=== PATIENT | female | born 1990 | race Caucasian/White ===

== ENCOUNTER → 2019-01-08 | Outpatient (CLI) | payer BC ==
[~2019-01-08] MED LIST: IBU800 M1 PO; PERCOCET 325 MG1 TA2 PO; PRENATAL MVI PO
--- NOTE | 2019-01-08 12:54 | NUR ---
Breann into outpatient walk in clinic for questions regarding breast pump shield size. At the presetn time, Breann is strictly pumping and feeding and chooses not to put infant to breast. Breann is pumping 6 times per day and collects 4-7 oz with each session. Breann Mi ( [birth year]) has had good weight gain, eating atleast 2.5 oz via bottle 8 x per day. Diapers are WNL. Breann verbalizes she is feeling pain with pumping and questions if her 24 mm moore are to small. While in clinic, Breann pumped with double electric pump. Nipple appeared to be pulled into the tunnel of the shield without rubbing against the sides. As she pumped longer, nipples appeared to become slightly more swollen. LC questions that a larger size shield woudl be to big and a smaller size shield would be to constrictive. It was suggested to try Pumpin Pals pump moore as they may be more comfortable. POC: If feels shield is incorrect size, try other sizes or the Pumpin Pal moore. LC offered verbal education on what the nipple with look like in a shield that is to large or to small. Questions encouraged and answered.
== END ==
LOC: OLC 11:29
DX: Z39.1 Encounter for care and examination of lactating mother (principal); Z71.89 Other specified counseling

== ENCOUNTER 2021-02-24 06:42 | Inpatient (IN) | payer BC ==
[~2021-02-24] VITALS: Ht 175.3 cm; Wt 138.2 kg
[2021-02-24] VITALS (28 sets, daily range): BP systolic 101–148; BP diastolic 49–93; PULSE 89–107; TEMP 97.6–98.9
--- NOTE | 2021-02-24 06:35 | NUR ---
PT AMBULATORY TO UNIT FOR SCHEDULED IOL. ASSISTED INTO GOWN AND ORIENTED TO LABOR ROOM. PLACED ON EFM/TOCO UPON ARRIVAL, CATEGORY 1 STRIP WITH ACCELERATIONS NOTED WITH NO CONTRACTIONS UPON ARRIVAL. PT DENIES FEELING ANY CONTRACTIONS, DENIES LEAKING OF FLUID, REPORTS POSITIVE MOVEMENT. WILL ADMIT PATIENT AND BEGIN IOL PER PROTOCOL.
[2021-02-24 07:57] LABS: BASO % 0.3 % (0.0-2.0); EOS # 0.1 K/mm3 (0.0-0.7); EOS % 1.1 % (0-4.0); GRAN # 7.8 K/mm3 (1.4-6.5); GRAN % 71.4 % (42.2-75.2); HEMATOCRIT 40.2 % (37.0-47.0); HEMOGLOBIN 13.7 g/dl (12.5-16.0); LYMPH # 2.2 K/mm3 (1.2-3.4); LYMPH % 20.3 % (20.0-51.0); MEAN CELL VOLUME 91 fl (80.0-100.0); MEAN CORPUSCULAR HEMOGLOBIN 31 pg (27.0-31.0); MEAN CORPUSCULAR HGB CONC 34 g/dl (33.0-37.0); MEAN PLATELET VOLUME 12.1 fl (7.4-10.4); MONO # 0.7 K/mm3 (0.1-0.6); MONO % 6.3 % (1.7-9.3); PLATELET COUNT 186 K/mm3 (130-400); RED BLOOD COUNT 4.44 M/mm3 (4.10-5.30); REDCELL DISTRIBUTION WIDTH-CV 12.9 % (11.5-14.5)
--- NOTE | 2021-02-24 10:37 | NUR ---
PT SITTING ON EDGE OF BED FOR EPIDURAL PLACEMENT. CAIN MERIDA PROVIDES EDUCATION REGARDING PROCEDURE. CONSENTS SIGNED. PT DENIES FURTHER QUESTIONS. DIFFICULTY TRACING EFM/TOCO DUE TO MATERNAL POSITIONING AND HABITUS. CONTRACTIONS FIRM BY PALPATION Q1.5-2MIN. 1037: SINGLE SHOT PER CAIN MERIDA 1045: PT HYPOTENSIVE, REPORTS FEELING FAINT AND EARS RINGING. EPHEDRINE ADMINSTERED VIA IV PER PROTOCOL. BP BEGINS TO RECOVER. PT REPORTS "FEELING BETTER" FOLLOWING MEDICATION ADMINISTRATION.
--- NOTE | 2021-02-24 11:35 | NUR ---
1135: PT REPORTS FEELING URGE TO PUSH AND INCREASED PERINEAL PRESSURE. SVE COMPLETE/+2. CALL TO PER VERBAL ORDERS FROM DUE TO BEING IN SURGERY AT THIS TIME. PAIN MEDICINE PHYSICIAN CALLS TO REQUEST ASSISTANCE WITH DELIVERY. 1145: AT BEDSIDE FOR DELIVERY. ROOM PREPPED AND PT BEGINS PUSHING. 1155: TO BEDSIDE FOLLOWING HER PRIOR PROCEDURE. TAKES OVER COACHING PATIENT THROUGH PUSHING SHE PREPARES FOR DELIVERY. 1203: OF VIABLE MALE PER . PLACED ON MATERNAL ABDOMEN, CORD CLAMPED X2 AND CUT BY FOB. CARE OF INFANT ASSUMED BY GURPREET BOSS. 1210: OF PLACENTA. PITOCIN BOLUS INFUSING PER PROTOCOL. BEGINS REPAPIR TO SECOND DEGREE PERINEAL LACERATION. FUNDUS FIRM AT UMBILICUS, LOCHIA MODERATE WITH CLOTS AT THIS TIME. WILL CONTINUE TO MONITOR. VITAL SIGNS STABLE. 1300: X2 FUNDAL MASSAGES WITH MODERATE LOCHIA AND CLOTS. PT REPORTS SHE KEEPS FEELING "DIZZY AND FAINT." IM METHERGINE ADMINISTERED PER VERBAL ORDERS. WILL CONTINUE TO MONITOR. BP STABLE AT THIS TIME. PT APPEARS PALE AND DIAPHORETIC. 1430: FUNDUS FIRM AT UMBILICUS, LOCHIA SCANT WITH NO FURTHER CLOTTING. PT "FEELS MUCH BETTER, JUST TIRED." VITAL SIGNS STABLE. REPORTS STILL FEELING MINIMAL NUMBNESS AND TINGLING TO BLE, BUT IT IS GREATLY IMPROVING. WILL REASSESS SHORTLY TO ATTEMPT TO MOVE PT TO ROOM. STABLE AT THIS TIME.
--- NOTE | 2021-02-24 15:15 | NUR ---
PT REPORTS FULL SENSATION TO BLE. FUNDUS FIRM AND 1FB BELOW UMBILICUS. LOCHIA SCANT WITH NO CLOTS. VITAL SIGNS STABLE. PT AMBULATORY TO RESTROOM WITH STEADY GAIT, DENIES DIZZINESS OR FEELING FAINT. YOHANA CARE PROVIDED. ASSISTED INTO NEW GOWN WITH CLEAN UNDERWEAR AND PAD. EPIDURAL REMOVED FROM BACK. PT TOLERATED ACTIVITY WELL. ASSISTED TO ROOM 215 TO CONTINUE CARES.
[2021-02-25] VITALS: BP 121/79; PULSE 97; TEMP 98
[2021-02-25 07:14] VITALS: BP 128/76; PULSE 88; TEMP 97.8
[2021-02-25 07:54] VITALS: BP 121/74; PULSE 69; TEMP 97.7
[2021-02-25] MEDS ORDERED: IBU800 M1 PO (08:48)
--- NOTE | 2021-02-25 09:12 | NUR ---
Initial visit attempt; Patient indisposed, Tutor Coordinator left card of God's blessings and congratulations for the of their son.
[2021-02-25 13:04] VITALS: BP 130/81; PULSE 88; TEMP 97.6
[2021-02-25 16:26] VITALS: BP 122/74; PULSE 82; TEMP 97.7
[2021-02-25 18:00] VITALS: BP 142/82; PULSE 66; TEMP 97.7
[2021-02-26 07:45] VITALS: BP 132/88; PULSE 97; TEMP 97.8
--- NOTE | 2021-02-26 16:30 | NUR ---
Dismissed to border status hospitality. Bands matched with babys.
== END 2021-02-26 16:30 | disposition home or self-care (01) | DRG 807 ==
LOC: LDR 06:42 → OB 15:15
PROVIDERS: ADMIT Student in an Organized Health Care Education/Training Program
PROC: 10E0XZZ Delivery of Products of Conception, External Approach (ICD-10-PCS; principal; 2021-02-24)
PROC: 0KQM0ZZ Repair Perineum Muscle, Open Approach (ICD-10-PCS; 2021-02-24)
PROC: 3E033VJ Introduction of Other Hormone into Peripheral Vein, Percutaneous Approach (ICD-10-PCS; 2021-02-24)
PROC: 10907ZC Drainage of Amniotic Fluid, Therapeutic from Products of Conception, Via Natural or Artificial Opening (ICD-10-PCS; 2021-02-24)
DX: O10.92 Unspecified pre-existing hypertension complicating childbirth (principal); Z37.0 Single live birth; O99.214 Obesity complicating childbirth; O70.1 Second degree perineal laceration during delivery; Z3A.38 38 weeks gestation of pregnancy; Z23 Encounter for immunization
CPT/HCPCS: J2210; J2590; J7120

== ENCOUNTER 2023-11-07 05:19 | Inpatient (IN) | payer OTHER ==
[~2023-11-07] VITALS: Ht 175.3 cm; Wt 140.5 kg
[2023-11-10] VITALS (26 sets, daily range): BP systolic 106–168; BP diastolic 56–90; PULSE 75–100; TEMP 97.8–98.2
--- NOTE | 2023-11-10 06:47 | NUR ---
PT AMBULATORY TO LR 6 AT THIS TIME. CHANGED INTO CLEAN GOWN AND PREPPED FOR ADMISSION
[2023-11-10] MEDS ORDERED: LR 1,000 ML IV SCH (07:00)
[2023-11-10] MEDS ORDERED: LR & Oxytocin 500 ML IV SCH (07:00)
[2023-11-10 08:10] LABS: BASO % 0.4 % (0.0-2.0); EOS # 0.1 K/mm3 (0.0-0.7); EOS % 1.2 % (0.0-4.0); GRAN # 7.3 K/mm3 (1.4-6.5); GRAN % 69.8 % (42.2-75.2); HEMOGLOBIN 11.8 g/dl (12.5-16.0); LYMPH # 2.3 K/mm3 (1.2-3.4); LYMPH % 21.4 % (20.0-51.0); MEAN CELL VOLUME 89 fl (80.0-100.0); MEAN CORPUSCULAR HEMOGLOBIN 30 pg (27-31); MEAN CORPUSCULAR HGB CONC 34 g/dl (33.0-37.0); MEAN PLATELET VOLUME 11.7 fl (7.4-10.4); MONO # 0.7 K/mm3 (0.1-0.6); MONO % 6.7 % (1.7-9.3); PLATELET COUNT 189 K/mm3 (130-400); RED BLOOD COUNT 3.93 M/mm3 (4.10-5.30)
[2023-11-10 08:12] LABS: HEMATOCRIT 34.9 % (37.0-47.0)
--- NOTE | 2023-11-10 10:16 | NUR ---
PT SITTING UPRIGHT FOR PLACEMENT OF EPIDURAL. 1016: TESTDOSE ADMINISTERED PER FUAD BERNABE. PT TOLERATED PROCEDURE VERY WELL. REPOSITIONED PATIENT TO WEDGE LEFT. CALL LIGHT AND WATER WITHIN REACH.
[2023-11-10] MEDS ORDERED: diphenhydrAMINE 50 MG/ML 1 ML VIAL IV PRN (11:00)
[2023-11-10] MEDS ORDERED: diphenhydrAMINE 25 MG CAP PO PRN (11:00)
[2023-11-10] MEDS ORDERED: ePHEDrine 50 MG/10 ML VIAL IV PRN (11:00)
[2023-11-10] MEDS ORDERED: Naloxone 0.4 MG/ML VIAL IV PRN ×2 (11:00→12:30)
[2023-11-10] MEDS ORDERED: Ondansetron 4 MG/2 ML VIAL IV PRN (11:00)
[2023-11-10] MEDS ORDERED: ROPivacaine PF 0.2% 200 ML IV ONE (12:03)
--- NOTE | 2023-11-10 12:04 | NUR ---
1110: AFTER DEEP DECEL AND TURNED OFF PIT D/T RECURRENT LATES. SVE 7/0. BOLUS OF LR, NEXT CONTRACTION DEEP LATE DECEL TO THE MID 90'S, REPOSITIONED AND CALLED PHYSICIAN, NO ANSWER. AT 1130, PHYSICIAN CALLED THIS RN, I INFORMED HIM OF RECURRENT LATES AND DEEP DECELS WELL TURNING OFF THE PITOCIN. AFTER TURNING OFF THE PITOCIN, THE DECELS STOPPED FOR THE NEXT TWO CONRTACTIONS. HUNG UP WITH PHYSICIAN AT 1135. AT 1137: THE PATIENT BEGINS A CONTRACTION THAT "FEELS DIFFERENT". HEART TONES WERE DECELING. AT 1138, THIS RN CHECKED PATIENT, SVE COMPLETE/+1. 1138: NOTIFIED PHYSICIAN PT IS COMPLETE AND WE NEED HIM FOR DELIVERY. 1149: ARRIVED, GOWNED AND GLOVED, BED PREPARED FOR DELIVERY. PT CONTRACTIONS ARE BEGINNING TO SPACE OUT. 1152: PT FEELS SOME PRESSURE AND ATTEMPTS TO PUSH, PER HE DID NOT BELIEVE SHE WAS HAVING A CONTRACTION, HOWEVER WITH THAT PUSH, HE FELT GOOD MATERNAL EFFORT MOVED INFANT WELL. 1155: PER , START PITOCIN AT 4 AGAIN TO AID IN INCREASED CONTRACTIONS. 1201: OF VIABLE MALE . INFANT STIMULATED AND PLACED ON MATERNAL ABDOMEN, CORD CLAMPEDX2 AND FOB CUT CORD. MOVED TO MATERNAL CHEST AND CARE OF ASSUMED BY GURPREET JOEL. PITOCIN TURNED OFF PER HOSPITAL POLICY. CORD BLOOD OBTAINED BY AND PASSED OFF TO GURPREET QUINTANILLA AND SENT IT TO LAB. 1204: OF INTACT PLACENTA. PITOCIN STARTED PER HOSPITAL POLICY AT 333ML/HR. FUNDAL MASSAGE PER . REPAIR OF 1ST DEGREE PERINEAL LACERATION. PT STRAIGHT CATHED AND PERINEAL CARE PERFORMED PER . EPIDURAL STOPPED AND TURNED OFF AT THIS TIME. 1208: PT REPOSITIONED AND PLACE IN SEMIFOWLER WITH ICEPACK AND PERIPAD. FUNDAL MASSAGE PERFORMED WITH LOCHIA WNNetta. WATER GIVEN AND CALL LIGHT WITHIN REACH.
[2023-11-10] MEDS ORDERED: Witch Hazel 50% Pads Bulk TUB TP PRN (12:30)
[2023-11-10] MEDS ORDERED: Phenylephrine/Mineral Oil/Petrolatum 57 GM TUBE RC PRN (12:30)
[2023-11-10] MEDS ORDERED: Loratadine 10 MG TAB PO PRN (12:30)
[2023-11-10] MEDS ORDERED: Measles/Mumps/Rubella Virus Vaccine Live w Diluent 0.5 ML VIAL SQ SCH (12:30)
[2023-11-10] MEDS ORDERED: Acetaminophen 500 MG TAB PO SCH (12:30)
[2023-11-10] MEDS ORDERED: Magnes Hydrox (MOM) 80 MG/ML 30 ML CUP PO PRN (12:30)
[2023-11-10] MEDS ORDERED: oxyCODONE 5 MG TAB PO PRN (12:30)
[2023-11-10] MEDS ORDERED: Ibuprofen 600 MG TAB PO SCH (12:30)
[2023-11-10] MEDS ORDERED: Mag/Al Hydrox/Simeth Susp 30 ML CUP PO PRN (12:30)
--- NOTE | 2023-11-10 15:30 | NUR ---
REMOVAL OF EPIDURAL CATHETER, PT TOLERATED WELL. DANGLING AT BEDSIDE
--- NOTE | 2023-11-10 15:45 | NUR ---
REPORT GIVEN TO GURPREET WALDRON AND GURPREET KHALIL.
--- NOTE | 2023-11-10 16:59 | NUR ---
1620 PT ORIENTED TO ROOM, GIVEN INSTRUCTIONS TO CALL OUT WHEN PT NEEDS TO VOID AND PT GET UP WITH THE RN. . PT VERBALIZES UNDERSTANDING AND HAS NO QUESTIONS.
[2023-11-10] MEDS ORDERED: Sennosides/Docusate 8.6-50 MG TAB PO SCH (17:00)
[2023-11-10] MEDS ORDERED: traZODone 50 MG TAB PO PRN (21:00)
--- NOTE | 2023-11-10 21:00 | NUR ---
Pt states she took her home labetalol medication at this time.
[2023-11-11 03:30] VITALS: BP 152/80; PULSE 92; TEMP 98.2
[2023-11-11] MEDS ORDERED: NORMODYNE200 MG PO (06:30)
[2023-11-11] MEDS ORDERED: MOTRIN 600600 MG/TAB PO (07:19)
[2023-11-11 07:45] VITALS: BP 119/76; PULSE 97; TEMP 97.9
== END 2023-11-11 14:45 | disposition home or self-care (01) | DRG 807 ==
LOC: OB 05:19 → LDR 11-10 06:39 → OB 11-10 13:18
PROVIDERS: ADMIT Student in an Organized Health Care Education/Training Program
PROC: 10E0XZZ Delivery of Products of Conception, External Approach (ICD-10-PCS; principal; 2023-11-10)
PROC: 0HQ9XZZ Repair Perineum Skin, External Approach (ICD-10-PCS; 2023-11-10)
PROC: 10907ZC Drainage of Amniotic Fluid, Therapeutic from Products of Conception, Via Natural or Artificial Opening (ICD-10-PCS; 2023-11-10)
PROC: 3E033VJ Introduction of Other Hormone into Peripheral Vein, Percutaneous Approach (ICD-10-PCS; 2023-11-10)
DX: O13.4 Gestational [pregnancy-induced] hypertension without significant proteinuria, complicating childbirth (principal); Z37.0 Single live birth; O70.0 First degree perineal laceration during delivery; O99.213 Obesity complicating pregnancy, third trimester; Z3A.38 38 weeks gestation of pregnancy
CPT/HCPCS: J2590; J2795; J7120